=== PATIENT | male | born 1980 | race Caucasian/White ===

== ENCOUNTER 2017-04-24 15:46 | Emergency (ER) | payer MEDICAID ==
[~2017-04-24] VITALS: Ht 167.6 cm; Wt 80.0 kg
[~2017-04-24 15:46] MED LIST: HYDR-3965 PO; HYDR-569 PO; METH4TAB3 PO; METH500T PO; METH500T6 PO; NAPR-1154 PO; ONDA4TAB12 PO; ONDA4TAB6 PO; OXYC-134 PO; PENI500T2 PO
[2017-04-24] MEDS ORDERED: SULF1TAB49 PO (16:07)
[2017-04-24 16:11] VITALS: BP 136/81
== END 2017-04-24 16:12 | disposition home or self-care (01) ==
LOC: ER 15:47
DX: L03.115 Cellulitis of right lower limb (principal); I10 Essential (primary) hypertension; F15.10 Other stimulant abuse, uncomplicated; Z88.1 Allergy status to other antibiotic agents
CPT/HCPCS: 99283

== ENCOUNTER 2018-05-12 09:55 | Emergency (ER) | payer MEDICAID ==
[~2018-05-12] VITALS: Ht 167.6 cm; Wt 80.0 kg
[~2018-05-12 09:55] MED LIST changes: +HYDR-4383 PO; -HYDR-569 PO
[2018-05-12 10:18] VITALS: BP 138/95
[2018-05-12] MEDS ORDERED: diazepam 5mg tablet PO ONE (10:40)
[2018-05-12] MEDS ORDERED: ketorolac trometh inj. 60 MG/2 ML VIAL IM ONE (10:40)
[2018-05-12] MEDS ORDERED: oxyCODONE/APAP 5-325mg tablet PO ONE (10:45)
[2018-05-12] MEDS ORDERED: oxyCODONE/APAP 10/325mg tablet PO ONE (10:45)
== END 2018-05-12 10:57 | disposition home or self-care (01) ==
LOC: ER 09:56
DX: M54.5 Low back pain (principal); I10 Essential (primary) hypertension; G89.29 Other chronic pain; F17.210 Nicotine dependence, cigarettes, uncomplicated; F15.90 Other stimulant use, unspecified, uncomplicated; Z88.1 Allergy status to other antibiotic agents
CPT/HCPCS: 96372; 99284; J1885

== ENCOUNTER 2020-11-03 05:41 | Emergency (ER) | payer MEDICAID ==
[~2020-11-03] VITALS: Ht 165.1 cm; Wt 77.2 kg
[~2020-11-03 05:41] MED LIST changes: +METH-797 PO; -METH500T6 PO
[2020-11-03 06:18] VITALS: BP 119/84
[2020-11-03] MEDS ORDERED: ibuprofen tablet 400 MG TABLET PO ONE (07:55)
[2020-11-03] MEDS ORDERED: cyclobenzaprine 10mg tablet PO ONE (07:55)
[2020-11-03] MEDS ORDERED: morphine 4 MG/ML inj SYRINge IM ONE (07:55)
[2020-11-03] MEDS ORDERED: CYCL-1 PO (09:00)
== END 2020-11-03 09:24 | disposition home or self-care (01) ==
LOC: ER 05:41
DX: U07.1 COVID-19 (principal); M54.5 Low back pain; R51.9 Headache, unspecified; R43.8 Other disturbances of smell and taste; R11.0 Nausea; R50.9 Fever, unspecified; I10 Essential (primary) hypertension; G89.29 Other chronic pain; F41.9 Anxiety disorder, unspecified; F15.90 Other stimulant use, unspecified, uncomplicated; Z87.11 Personal history of peptic ulcer disease; Z87.442 Personal history of urinary calculi; Z98.890 Other specified postprocedural states; Z72.89 Other problems related to lifestyle; Z88.1 Allergy status to other antibiotic agents; Z79.2 Long term (current) use of antibiotics; Z79.899 Other long term (current) drug therapy
CPT/HCPCS: 36415; 96372; 99283; J2270; U0003; U0005